=== PATIENT | male | born 1985 | race Caucasian/White ===

== ENCOUNTER 2017-08-04 09:27 | Inpatient (IN) | payer MEDICAID ==
[~2017-08-04] VITALS: Ht 162.6 cm; Wt 82.7 kg
[2017-08-04 10:20] LABS: BASOPHIL % 0.5 % (0-2); PLATELET COUNT 332 x10^3mcL (130-400); RED CELL DISTRIBUTION WIDTH 12.9 % (11.5-14.5)
[2017-08-04 10:27] LABS: CALCIUM 8.4 mg/dL (8.5-10.1); CARBON DIOXIDE 26.2 mmol/L (21-32); CHLORIDE SERUM 105 mmol/L (98-107); CREATININE SERUM 0.9 mg/dL (0.7-1.3); GFR1 > 60 mL/min; GLUCOSE SERUM 117 mg/dL (74-106); POTASSIUM SERUM 3.5 mmol/L (3.5-5.1); SODIUM SERUM 139 mmol/L (136-145)
[2017-08-04 10:31] LABS: ALBUMIN 3.9 g/dL (3.4-5.0); ALKALINE PHOSPHATASE 115 U/L (46-116); ALT/SGPT 66 U/L (16-63); AST/SGOT 34 U/L (15-37); BILIRUBIN TOTAL 0.35 mg/dL (0.20-1.00); LIPASE 129 IU/L (73-393); TOTAL PROTEIN, SERUM 7.6 g/dL (6.4-8.2)
[2017-08-04 12:37] LABS: CHOLESTEROL 193 mg/dL (<200); MAGNESIUM 1.8 mg/dL (1.8-2.4); PHOSPHOROUS 3.5 mg/dL (2.5-4.9)
[2017-08-04 12:38] LABS: CHOLESTEROL/HDL RATIO 6.4; HDL CHOLESTEROL 30 mg/dL (40-60); TRIGLYCERIDES 527 mg/dL (<150)
[2017-08-04 12:40] LABS: T3 TOTAL 1.47 ng/mL
[2017-08-04 12:42] LABS: FREE T4 0.99 ng/dL (0.76-1.46); FREE THYROXINE INDEX 3.2 ug/dL (1.4-4.5); T4(THYROXINE) 8.6 ug/dL (4.7-13.3)
[2017-08-04 12:50] LABS: microscopic required? NO
[2017-08-04 13:01] LABS: UA SPECIFIC GRAVITY 1.025 (1.005-1.035); urine erythrocyte NEGATIVE (NEGATIVE)
[2017-08-04 13:20] LABS: AMPHETAMINE QUAL UR NONE DETECTED (NEG <=1000)
[2017-08-04 13:29] VITALS: BP 131/89
[2017-08-04 13:31] VITALS: Ht 162.6 cm; Wt 82.7 kg
[2017-08-04 17:18] VITALS: BP 126/72
[2017-08-04 21:47] VITALS: BP 106/63
[2017-08-05 05:35] LABS: BASOPHIL % 0.4 % (0-2); PLATELET COUNT 364 x10^3mcL (130-400); RED CELL DISTRIBUTION WIDTH 13.1 % (11.5-14.5)
[2017-08-05 05:45] LABS: CALCIUM 8.9 mg/dL (8.5-10.1); CARBON DIOXIDE 25.9 mmol/L (21-32); CHLORIDE SERUM 102 mmol/L (98-107); CREATININE SERUM 0.9 mg/dL (0.7-1.3); GFR1 > 60 mL/min; GLUCOSE SERUM 117 mg/dL (74-106); PHOSPHOROUS 4.4 mg/dL (2.5-4.9); POTASSIUM SERUM 3.5 mmol/L (3.5-5.1); SODIUM SERUM 137 mmol/L (136-145)
[2017-08-05 06:10] VITALS: BP 92/55
[2017-08-05 10:31] VITALS: BP 119/76
[2017-08-05 13:11] VITALS: BP 117/51
[2017-08-05 18:14] VITALS: BP 104/54
[2017-08-05 20:49] VITALS: BP 100/55
[2017-08-06 05:57] VITALS: BP 99/57
[2017-08-06 06:07] LABS: BASOPHIL % 0.2 % (0-2); PLATELET COUNT 325 x10^3mcL (130-400); RED CELL DISTRIBUTION WIDTH 12.7 % (11.5-14.5)
[2017-08-06 06:26] LABS: CALCIUM 8.3 mg/dL (8.5-10.1); CARBON DIOXIDE 25.9 mmol/L (21-32); CHLORIDE SERUM 104 mmol/L (98-107); CREATININE SERUM 0.9 mg/dL (0.7-1.3); GFR1 > 60 mL/min; GLUCOSE SERUM 111 mg/dL (74-106); POTASSIUM SERUM 3.5 mmol/L (3.5-5.1); SODIUM SERUM 138 mmol/L (136-145)
[2017-08-06 09:22] VITALS: BP 108/63
[2017-08-06] MEDS ORDERED: LIPI10 PO (11:54)
[2017-08-06] MEDS ORDERED: COL100 PO (11:57)
[2017-08-06] MEDS ORDERED: ACETAMINOPHEN-H1 TA1 PO (11:58)
[2017-08-06] MEDS ORDERED: NOR10T PO (12:30)
[2017-08-06 13:10] VITALS: BP 108/63
[2017-08-06 13:16] VITALS: BP 121/77
== END 2017-08-06 15:28 | disposition home or self-care (01) | DRG 228 ==
LOC: ED 09:27 → DU 11:30
PROVIDERS: Emergency Medicine; Surgery; ADMIT Family Medicine
PROC: 0YU50JZ Supplement Right Inguinal Region with Synthetic Substitute, Open Approach (ICD-10-PCS; principal; 2017-08-05 08:00)
DX: K40.31 Unilateral inguinal hernia, with obstruction, without gangrene, recurrent (principal); D68.69 Other thrombophilia; R73.03 Prediabetes; E78.2 Mixed hyperlipidemia; E03.9 Hypothyroidism, unspecified; Z68.31 Body mass index [BMI] 31.0-31.9, adult
CPT/HCPCS: 82962; 83880; 84439; 94150; C1781; J0690; J1170; J1200; J1885; J1956; J2175; J2250; J2270; J2405; J3010; J3490; J7030

== ENCOUNTER 2017-08-08 15:34 | Emergency (ER) | payer MEDICAID ==
[~2017-08-08] VITALS: Ht 172.7 cm; Wt 80.7 kg
[~2017-08-08 15:34] MED LIST: ACETAMINOPHEN-H1 TA1 PO; COL100 PO; LIPI10 PO; NOR10T PO
[2017-08-08 15:39] VITALS: Ht 172.7 cm; Wt 80.7 kg
[2017-08-08 17:11] LABS: UA SPECIFIC GRAVITY 1.015 (1.005-1.035); microscopic required? YES; urine erythrocyte TRACE (NEGATIVE)
[2017-08-08 19:51] VITALS: BP 120/65
== END 2017-08-08 19:51 | disposition home or self-care (01) ==
LOC: ED 15:34
PROVIDERS: Emergency Medicine
PROC: 0YQ50ZZ Repair Right Inguinal Region, Open Approach (ICD-10-PCS; principal; 2017-08-08)
DX: G89.18 Other acute postprocedural pain (principal); N43.3 Hydrocele, unspecified
CPT/HCPCS: J1885; Q0092; Q0162